=== PATIENT | female | born 1950 | race African-American/Black ===

== ENCOUNTER 2016-11-14 17:36 | Emergency (ER) | payer OTHER ==
[2016-11-14 18:14] VITALS: BP 180/114
[2016-11-14] MEDS ORDERED: NORCO-7.5 PO ONE (19:00)
[2016-11-14] MEDS ORDERED: ZOFRAN ODT PO ONE (19:00)
--- NOTE | 2016-11-14 19:24 | PROVIDER DOCUMENTATION ---
HPI-Musculoskeletal Pain/Inj - GENERAL Source: family - HX OF PRESENT ILLNESS-MUSKULOSKELTAL Quality of Pain: reports: aching Severity in ED: mild Onset/Duration: this morning Timing: still present Modifying Factors: improves with: nothing Any recent injury?: Yes (fall) Locality of Occurance: Home Similar Symptoms Previously?: No Recently seen or treated by another doctor?: No - FALL INJURY Location of Pain/Injury: reports: face, upper extremity Pain Radiation: reports: no radiation Reason for Fall: reports: lost balance Symptoms prior to fall:: reports: none Loss of Consciousness: no loss of consciousness <Silvia Cr - Last Filed: 11/14/16 19:31> <Bam Velasco - Last Filed: 11/14/16 20:18> - GENERAL Chief Complaint: Fall Stated Complaint: FALL Time Seen by Provider: 11/14/16 18:25 - HX OF PRESENT ILLNESS-MUSKULOSKELTAL Nature of Presenting Problem: 66 year old F presents to the ED with a cc of a fall this morning. Family states that her right wrist is swollen and has right facial swelling. Family states that she has not been able to care for herself today and not been able to use the restroom by herself. (Silvia Cr) Review of Systems - Adult - REVIEW OF SYSTEMS - ADULT Constitutional: denies: chills, fever Eyes: reports: no symptoms reported Ears, Nose, Mouth & Throat: reports: no symptoms reported Cardiovascular: denies: chest pain, palpitations Respiratory: denies: cough, shortness of breath Gastrointestinal: denies: nausea, vomiting Genitourinary: reports: no symptoms reported Musculoskeletal: reports: bone pain, muscle aches. denies: muscle weakness Integumentary: denies: skin sores/ulcer, skin thickening Neurological: denies: dizziness/vertigo, headache/migraines Psychiatric: reports: no symptoms reported Endocrine: reports: no symptoms reported Hematologic/Lymphatic: reports: no symptoms reported Allergic/Immunologic: reports: no symptoms reported All Other Systems: Reviewed and Negative <Silvia Cr - Last Filed: 11/14/16 19:31> Past History - Adult - PAST MEDICAL HISTORY-ADULT Review of Records: reports: Nursing Assessment Review, Medications Reviewed Major Childhood Illnesses: reports: denies history Cardiovascular: reports: CHF, HTN Neurological: reports: CVA Endocrine/Immune: reports: Diabetes - PRIOR SURGERIES/PROCEDURES Surgical/Procedure History: reports: hysterectomy, tonsillectomy - IMMUNIZATION STATUS Childhood Immunizations: See Nurse Assessment Flu Vaccine: See Nurse Assessment - SOCIAL HISTORY Smoking: non-smoker Substance Use: none/never Alcohol Use Frequency: never <Silvia Cr - Last Filed: 11/14/16 19:31> Physical Exam-Injury Related - Physical Exam-Injury Related Initial Vital Signs Reviewed: Yes General Appearance: appears well, alert, no apparent distress Head, Ears, Nose, Mouth & Throat: other (right facial swelling) Respiratory: chest non-tender, lungs clear, normal breath sounds Cardiovascular: normal peripheral pulses, regular rate, rhythm, no edema Extremity: deformity (right wrist), swelling (right wrist), tenderness (right wrist) Integumentary: normal color, warm/dry Psych/Mental Status: AL, normal mood/affect, normal thought content, normal thought process, oriented x 3 <Silvia Cr - Last Filed: 11/14/16 19:31> Progress <Silvia Cr - Last Filed: 11/14/16 19:31> - XRAY 1 XRAY: Right XRAY Study: Wrist XRAY Interpretation: ulnar fx - CT/MRI 1 CT Study: Facial Bones, Head CT Results: nondisplaced R zygo fx; otherwise NAD <Bam Velasco - Last Filed: 11/14/16 20:18> - PLAN OF CARE/RESULTS Progress/Plan/Lab Results: Orders Category Date Time Status Arm Sling DIRECTED Care 11/14/16 19:00 Active OCL Splint DIRECTED Care 11/14/16 19:00 Active FACIAL BONES [CT] Stat Exams 11/14/16 18:59 Taken HEAD W/O CONTRAST [CT] Stat Exams 11/14/16 19:00 Taken WRIST COMPLETE RIGHT [RAD] Stat Exams 11/14/16 18:26 Taken Hydrocodone/APAP 7.5 mg/325 mg [Kempton-7.5] Med 11/14/16 19:00 Discontinued 1 each PO NOW ONE Ondansetron Odt [Zofran Odt] Med 11/14/16 19:00 Discontinued 4 mg PO NOW ONE Vital Signs Temp Pulse Resp BP Pulse Ox 11/14/16 18:11 97.9 F 59 L 20 180/114 98 No Known Allergies Allergy (Verified 11/14/16 19:09) Amlodipine/Valsartan/Hcthiazid [Exforge Hct 10-320-25 mg Tab] 1 each PO DAILY Clonidine [Catapres] 0.3 mg PO TID 07/23/12 Hydralazine [Apresoline] 50 mg PO TID 07/23/12 Isosorbide Mononitrate E.r. [Imdur] 30 mg PO DAILY 07/23/12 Metoprolol [Lopressor] 25 mg PO DAILY 07/23/12 Furosemide [Lasix] 40 mg PO DAILY #5 tablet 07/01/13 Will have pt f/u c orhto and ENT. Discussed results c pt and family. They are in agreement c this plan. (Bam Velasco) Procedures - SPLINTING Right Upper Extremity Splint Application (Hand-Made): Sugar-Tong <Silvia Cr - Last Filed: 11/14/16 19:31> Departure <Silvia Cr - Last Filed: 11/14/16 19:31> - Departure Time of Disposition Order: 20:17 Certified Medical Emergency: Emergent <Bam Velasco - Last Filed: 11/14/16 20:18> - Departure DIAGNOSIS: Zygomatic fracture Qualifiers: Encounter type: initial encounter Fracture type: closed Laterality: right Qualified Code(s): S02.40EA - Zygomatic fracture, right side, initial encounter for closed fracture Right distal ulnar fracture Qualifiers: Encounter type: initial encounter Fracture type: closed Fracture morphology: other fracture Qualified Code(s): S52.691A - Other fracture of lower end of right ulna, initial encounter for closed fracture Disposition: HOME 01 Condition: Good Additional Instructions: Take medication as prescribed. Follow up with an orthopedic surgeon. Follow up with an ENT. Return to the ER for any new or worsening symptoms. ED Follow Up Instructions: You have been treated by a care provider in the Emergency Department. These instructions are being provided to you so you can have an understanding of how to care for yourself upon discharge. Upon discharge from the Emergency Department, you are responsible for making arrangements for follow-up care by a physician of your choice. Take all prescribed medications as directed. Return to the Emergency Department immediately for any new or worsening symptoms. You may call the Physician Referral phone number at [phone] to obtain a list of Physicians who are taking new patients. Prescriptions: Hydrocodone/APAP 7.5 mg/325 mg [Kempton-7.5] 1 each PO Q6H PRN PRN #12 tablet PRN Reason: Pain Ondansetron Odt [Zofran 4 mg Odt] 4 mg PO Q6H PRN PRN #20 tablet PRN Reason: Nausea Referrals: Jessica Beth MD [Primary Care Provider] - Agnieszka Hernandez MD [STAFF PHYSICIAN] - Girish Nunez MD [STAFF PHYSICIAN] - Attestation - Scribe Verification/Attestation Scribe:: Silvia Cr Acting as Scribe for:: Bam Velasco Scribe documention review:: This chart was documented by a scribe and accurately reflects the service the provider performed and the decisions made by the provider. <Silvia Cr - Last Filed: 11/14/16 19:31> - Physician/ Mid-level Attestation Patient care was provided by Mid-level provider (CLEAN OUT DRILLER HELPER/PA):: Yes Mid-level provider:: Bam Velasco Mid-level documentation review:: The Mid-level provider documentation, treatment plan and medical decision making was reviewed by the physician who agrees with all treatment and medical decision making by the [facility]. <Bam Velasco - Last Filed: 11/14/16 20:18> Physician Attestation - Physician Attestation I, the provider, attest to the following statement:: Bam Velasco Physician documentation Attestation:: This documentation recorded by the scribe accurately reflects the service I personally performed and the decisions made by me. <Silvia Cr - Last Filed: 11/14/16 19:31>
--- NOTE | 2016-11-15 08:09 | Diag Imaging Result Document ---
PROCEDURE NAME: HEAD W/O CONTRAST - 11/14/2016 CT HEAD WITHOUT CONTRAST: COMPARISON: None available. FINDINGS: There is patchy low attenuation in the periventricular and subcortical white matter suggesting moderate microangiopathy. There is right occipital lobe encephalomalacia. There appears to be a couple chronic lacunar infarcts in the deep madden matter on the right. There is no evidence of acute infarct given the limited sensitivity of CT versus MRI. There is no discrete intracranial mass, mass effect, or intracranial hemorrhage. The surrounding soft tissues are grossly unremarkable. The calvaria is intact. IMPRESSION: Chronic-appearing intracranial changes as described but no evidence of acute intracranial pathology.
--- NOTE | 2016-11-15 08:16 | Diag Imaging Result Document ---
PROCEDURE NAME: WRIST COMPLETE RIGHT - 11/14/2016 RIGHT WRIST THREE VIEWS: FINDINGS: There is a fracture of the distal ulna. There is extensive arteriosclerosis. There are degenerative changes in the 1st metacarpal-carpal joint. IMPRESSION: Fracture distal ulna.
--- NOTE | 2016-11-15 09:35 | Diag Imaging Result Document ---
PROCEDURE NAME: FACIAL BONES - 11/14/2016 CT FACIAL BONES WITHOUT CONTRAST: COMPARISON: None available. FINDINGS: There is a small linear defect involving the anterior aspect of the zygomatic arch on the right. I feel that this is more likely a small vascular channel rather than a fracture. No other discrete facial bone fracture is identified. The mandible is normally located. The orbits and globes are intact. There is no evidence of retrobulbar hematoma. There is soft-tissue edema at the right side of the face mainly overlying the right maxillary region. There is no evidence of intrasinus hemorrhage. The mastoid air cells are clear. IMPRESSION: 1. Tiny linear defect involving the anterior zygomatic arch on the right that is very likely a vascular channel rather than a true fracture. 2. No definite acute facial bone fracture is identified otherwise. 3. Mild soft-tissue edema at the right side of the face. [facility]
== END 2016-11-14 21:22 | disposition home or self-care (01) ==
LOC: ED 17:36
DX: S02.40EA Zygomatic fracture, right side, initial encounter for closed fracture (principal); S52.691A Other fracture of lower end of right ulna, initial encounter for closed fracture; M25.431 Effusion, right wrist; M25.531 Pain in right wrist; R22.0 Localized swelling, mass and lump, head; M79.1 Myalgia; M89.8X9 Other specified disorders of bone, unspecified site; I50.9 Heart failure, unspecified; Z79.899 Other long term (current) drug therapy; I10 Essential (primary) hypertension; E11.9 Type 2 diabetes mellitus without complications; Z86.73 Personal history of transient ischemic attack (TIA), and cerebral infarction without residual deficits; W19.XXXA Unspecified fall, initial encounter
CPT/HCPCS: 70450; 70486